=== PATIENT | male | born 1970 | race Caucasian/White ===

== ENCOUNTER 2019-09-20 06:22 | Day surgery (SDC) | payer BC ==
[~2019-09-20 06:22] MED LIST: CEFAZOLIN 1 Gram 1 GM/50 ML BAG IVPB ONE; CEFAZOLIN 2 Gram 2 GM/50 ML BAG IVPB ONE; CELECOXIB 100 MG CAPSULE PO ONE; FAMOTIDINE 20MG TABLET PO ONE; MECLIZINE 25 MG TABLET PO ONE; METOCLOPRAMIDE 10 MG TABLET PO ONE; VANCOMYCIN 1GM/200ML PREMIX 1 GM/200 ML PIGGYBACK IVPB ONE
[2019-09-20] MEDS ORDERED: EPHEDRINE SULFATE 50 MG/ML ML IV ONE (06:23)
[2019-09-20] MEDS ORDERED: DEXAMETHASONE 4 MG/ML 1ML VIAL IVP ONE (06:23)
[2019-09-20] MEDS ORDERED: PHENYLEPHRINE HCL 10 MG/ML VIAL IVP ONE (06:23)
[2019-09-20] MEDS ORDERED: ROPIVACAINE HCL (NAROPIN) /PF 5MG/ML 20ML VIAL IV ONE (06:23)
[2019-09-20] MEDS ORDERED: FENTANYL PF 100MCG/2ML VIAL IV ONE (06:23)
[2019-09-20] MEDS ORDERED: LIDOCAINE 2% MDV (20MG/ML) 20ML VIAL IV ONE (06:23)
[2019-09-20] MEDS ORDERED: PROPOFOL 10 MG/ML VIAL IV ONE (06:23)
[2019-09-20] MEDS ORDERED: *PACU ONLY* KETAMINE HCL 10 MG/ML (20ML) VIAL IV ONE (06:23)
[2019-09-20] MEDS ORDERED: MIDAZOLAM HCL 2MG/2ML VIAL IV ONE (06:23)
[2019-09-20] MEDS ORDERED: RINGERS SOLUTION,LACTATED 1,000 ML IV ONE ×3 (07:00→10:05)
[2019-09-20 07:46] LABS: ABO GROUP O; ANTIBODY SCREEN NEGATIVE (NEGATIVE); RH TYPE POSITIVE
[2019-09-20] MEDS ORDERED: BUPIVACAINE 0.5% W/EPI MPF 30 ML VIAL SQ ONE (09:41)
[2019-09-20] MEDS ORDERED: TRANEXAMIC ACID 1,000 MG/10 ML ML IU ONE (09:41)
[2019-09-20] MEDS ORDERED: TRANEXAMIC ACID 1,000 MG/10 ML ML IV ONE (09:41)
[2019-09-20] MEDS ORDERED: ONDANSETRON HCL IV 4 MG/2 ML VIAL IVP PRN (10:45)
[2019-09-20] MEDS ORDERED: NALOXONE 0.4 MG/1 ML VIAL IVP PRN (10:45)
[2019-09-20] MEDS ORDERED: MAGNESIUM HYDROXIDE 30 ML UDC PO PRN (10:45)
[2019-09-20] MEDS ORDERED: HYDROMORPHONE HCL 2 MG/ML VIAL IM PRN (10:45)
[2019-09-20] MEDS ORDERED: ZOLPIDEM TARTRATE 5 MG TABLET PO PRN (10:45)
[2019-09-20] MEDS ORDERED: AL HYDROX/MAG HYDROX 30ML UD PO PRN (10:45)
[2019-09-20] MEDS ORDERED: KETOROLAC 30 MG/ML VIAL IVP PRN (10:45)
[2019-09-20] MEDS ORDERED: ACETAMINOPHEN 325 MG TAB PO PRN (10:45)
[2019-09-20] MEDS ORDERED: TRAMADOL HCL 50 MG TABLET PO PRN (10:45)
[2019-09-20] MEDS ORDERED: BISACODYL 10 MG SUPP RC PRN (10:45)
[2019-09-20] MEDS ORDERED: DIPHENHYDRAMINE HCL 25 MG CAPSULE PO PRN (10:45)
[2019-09-20] MEDS ORDERED: ACETAMINOPHEN W/ CODEINE 300MG/60MG TABLET PO PRN ×2 (10:45)
[2019-09-20] MEDS: HYDROCODONE/APAP 10/325 TABLET PO PRN ×3 (12:53→21:57)
--- NOTE | 2019-09-20 13:01 | Operative Note ---
DATE OF SURGERY: 09/20/2019 PREOPERATIVE DIAGNOSIS: End-stage arthrosis of the left knee. POSTOPERATIVE DIAGNOSIS: End-stage arthrosis of the left knee. OPERATION: Cemented left total knee arthroplasty using Ya and Nephew components with a size 7 Legion Oxinium femoral component, a size 6 stemmed tibia baseplate, a 9 mm lipped highly crosslinked tibial insert, and a 35 mm all-plastic patella. STAFF SURGEON: Fidencio Marie MD ANESTHESIA: Spinal. PREPARATION: Chloraprep. INDIVIDUAL CONSIDERATIONS: None. PROCEDURE: The patient was taken to the operating room, placed supine on the operating room table. He had a successful induction of a spinal anesthetic. The left lower extremity was prepped and draped in the usual fashion. The limb was elevated and tourniquet was inflated to 250 mmHg. Sharp dissection carried down through skin and subcutaneous tissue. Small veins were coagulated with a Bovie. A medial arthrotomy was performed. The patella was everted and the knee was flexed. The patient had exposed bone with bone loss in the medial and some in the patellofemoral compartments. Fat pad was resected, ACL was sacrificed, and provisional anterior meniscectomies were performed. The capsule was released from the medial proximal tibia. The initial femoral private pilot hole was then made freehand. The intramedullary femoral cutting jig was placed. It was set in 7.0 degrees of valgus and adjusted for rotation and secured with pins for a 10 mm resection. The initial transverse cut was then made. The skin guide was placed in 3 degrees of external rotation and the private pilot holes were drilled. The anterior and posterior cuts followed by chamfer cuts were made for a size 7, which fit appropriately. Large medial osteophytes were removed, and a size 7 trial was placed and found to fit well. The tibia was brought forward, and the remainder of the meniscal remnants removed with a Bovie. The extraarticular tibial cutting jig was placed. It was cut in neutral with a 3-degree AP slope. It was set for a 9 mm resection keyed off the high lateral side and secured with pins. When cutting the tibia, care was taken to preserve the PCL insertion on the tibia. After removing large medial osteophytes, I could fit a size 6. It was adjusted for rotation and secured with pins. With a 9 mm trial and femoral trial, there was excellent motion and stability. Ligamentous balance and rotation alignment were thought to be normal. Femoral private pilot holes were impacted and tri-flange tibial stamp was impacted, and these trial components were removed. The patient had a very thick patella and roughly 9 mm of bone was removed and the 3 private pilot holes were drilled for the 35 mm patella. The tourniquet was let down briefly to get bleeders posteriorly and then placed back up again. The knee was then thoroughly irrigated out with pulsatile Betadine and saline to remove any visual or palpable debris. Bony surfaces were dried with a CarboJet prior to cementing. A size 6 stemmed tibia baseplate was cemented into place followed by impaction of the 9 mm lipped highly crosslinked tibial insert followed by cementing in the size 7 Oxinium femur followed by cementing in the 35 mm patella. The implant surfaces were compressed, excess cement was removed. After the cement had set, there was excellent motion and stability. Ligamentous balance, rotation alignment, and patellofemoral tracking were normal. No lateral release was required. Tourniquet was let down. Hemostasis was obtained with a Bovie. Final irrigation with pulsatile Betadine and saline. The skin, periosteum, and subcu were infiltrated with 30 mL of 0.5% Marcaine with epinephrine. The capsule was then closed with a running #2 quill, subcu was closed in layers with running 0 quill, skin was closed with agustín. Then 1 g of tranexamic acid was mixed with 30 mL of saline and injected into the knee through a sterile 18-gauge needle, and a sterile bulky compressive MARCOS-type dressing was applied. The patient tolerated the procedure well. Needle and sponge counts were correct. Estimated blood loss was minimal, and he was taken back to recovery in good condition. There were no complications. [facility]ITALBaltazar
--- NOTE | 2019-09-20 13:47 | Rehab Evaluation ---
Patient Information - Patient Information Diagnosis: L knee DJD Ordered Treatment: PT Evaluate and Treat Status: Initial Evaluation Surgery: Yes (L TKA) Date of Surgery: 09/20/19 Past Medical/Surgical Hx: PAST MEDICAL/SURGICAL HISTORY Surgery to Affected Area? No Recent Surgery? Past Surgical History ACL RECONSTRUCTION RIGHT KNEE BILAT KNEE SCOPES PMH - Respiratory Hx Respiratory Disorders No PMH - Cardiovascular Hx Cardiovascular Disorders Yes Hx Hypertension Yes: CONTROLLED WITH MEDS Exercise Tolerance Good PMH - Neuro Hx Neurological Disorders No PMH - GI Hx Gastrointestinal Disorders Yes Hx Gastroesophageal Reflux Yes: ON OCCASSION PMH - Hx Genitourinary Disorders No PMH - Endocrine Hx Endocrine Disorders No PMH - Musculoskeletal Hx Musculoskeletal Disorders Yes Hx Arthritis Yes: KNEES PMH - Psych Hx Psychiatric Problems No PMH - Hematology/Oncology Hx Hematology/Oncology Yes Disorders Hx Cancer Yes: SKIN CA shoulder & back of head 02/03/18 Premorbid Status: Detail (The patient was independent with all mobility prior to history.) Social History: Detail (The patient lives with spouse in a one story house with a step, landing and a step with no railings at the front enterance. The bathroom is equipped with: a walk in shower with a small "lip" to step over, hand held shower head, built in shower bench and an elevated toilet. There are no grab bars in the bathroom. The patient has a front wheeled walker and single point cane.) Precautions: Citra, Fall, Other (WBAT on the L LE.) - Time With Patient Total Time Spent With Patient (Min): 30 Treatment Procedures: Detail (Initial Evaluation, low complexity, gait training) Subjective Information - Subjective Information Per Patient (The patient complained of L knee aching but not pain.) Objective Data - Mental Status Patient Orientation: Oriented x3 - Visual Perception Appears within normal limits for therapeutic activities - ROM Not within normal limits (The patient's L knee AROM is limited s/p surgery. All other LE AROM is WNL.) - Strength/Tone Not within normal limits (The patient's LE strength was not tested s/p however is WFL.) - Bed Mobility Independent (The patient was independent with sit to supine and required minimal PA to move L LE with supine to sit. The patient was independent with scooting up in bed.) - Transfers Independent (The patient was independent with sit to and from stand transfer.) - Balance Balance Sitting: Good Balance Standing: Good - Sensation Intact - Gait Detail (The patient ambulated with front wheeled walker WBAT on the LLE a distance of 60 feet x 1 with assist of one to handle equipment only.) Therapy Assessment - Therapy Assessment Detail (The patient was independent with transfers and ambulation and required minimal assist with moving L LE with supine to sit. The patient will be seen for 1-2 PT visits for completion of PT inpt. goals.) Problem List - Problem List Physical Therapy Problem List: Detail ( Decreased L knee AROM and L LE strength) Goals - Goals Physical Therapy Goals: 1) The patient will be independent with bed mobility. 2) The patient will be independent with TKA HEP. 3) The patient will ambulate on stairs using proper technique with supervision for safety only. 4) The patient will ambulate independently WBAT on the L LE WBAT on the L LE. Prognosis - Prognosis Good Plan - Plan Physical Therapy Plan: PT 1-2 sessions for gait training on levels and stairs, bed mobility and instruction in TKA HEP.
[2019-09-20] MEDS: POTASSIUM CHLORIDE/D5-0.9%NACL 20 MEQ/1,000 ML BAG IV SCH ×2 (14:07→22:02)
[2019-09-20] MEDS: CEFAZOLIN 2 Gram 2 GM/50 ML BAG IVPB SCH (16:20)
[2019-09-20] MEDS: DOCUSATE SODIUM 100 MG CAPSULE PO SCH (21:55)
[2019-09-21] MEDS: CEFAZOLIN 2 Gram 2 GM/50 ML BAG IVPB SCH ×2 (00:01→09:48)
[2019-09-21] MEDS: HYDROCODONE/APAP 10/325 TABLET PO PRN ×4 (01:45→15:19)
[2019-09-21] MEDS: POTASSIUM CHLORIDE/D5-0.9%NACL 20 MEQ/1,000 ML BAG IV SCH ×2 (05:36→12:06)
[2019-09-21 06:49] LABS: HEMATOCRIT 42.2 % (42.0-52.0); HEMOGLOBIN 13.5 gm/dl (14.0-18.0)
[2019-09-21 07:03] LABS: BLOOD UREA NITROGEN 9 mg/dL (6-20); CREATININE 0.8 mg/dL (0.7-1.2); EST GLOMERULAR FILTRATION RATE > 60 mL/min; GLUCOSE,RANDOM 113 mg/dL (74-109)
--- NOTE | 2019-09-21 08:40 | Rehab Evaluation ---
Patient Information - Patient Information Diagnosis: L knee DJD Ordered Treatment: OT Evaluate and Treat Status: Initial Evaluation Surgery: Yes (L TKA) Date of Surgery: 09/20/19 Past Medical/Surgical Hx: PAST MEDICAL/SURGICAL HISTORY Surgery to Affected Area? No Recent Surgery? Past Surgical History ACL RECONSTRUCTION RIGHT KNEE BILAT KNEE SCOPES PMH - Respiratory Hx Respiratory Disorders No PMH - Cardiovascular Hx Cardiovascular Disorders Yes Hx Hypertension Yes: CONTROLLED WITH MEDS Exercise Tolerance Good PMH - Neuro Hx Neurological Disorders No PMH - GI Hx Gastrointestinal Disorders Yes Hx Gastroesophageal Reflux Yes: ON OCCASSION PMH - Hx Genitourinary Disorders No PMH - Endocrine Hx Endocrine Disorders No PMH - Musculoskeletal Hx Musculoskeletal Disorders Yes Hx Arthritis Yes: KNEES PMH - Psych Hx Psychiatric Problems No PMH - Hematology/Oncology Hx Hematology/Oncology Yes Disorders Hx Cancer Yes: SKIN CA shoulder & back of head 02/03/18 Premorbid Status: Detail (The patient was independent with all mobility prior to history. He is typically responsible for meal prep and yard work and his spouse is responsible for home mgmt and laundry tasks.) Social History: Detail (The patient lives with spouse in a one story house with a step, landing and a step with no railings at the front entrance. The bathroom is equipped with: a walk in shower with a small "lip" to step over, hand held shower head, built in shower bench and an elevated toilet. There are no grab bars in the bathroom. The patient has a front wheeled walker and single point cane.) Precautions: Otto, Fall, Other (WBAT on the L LE.) - Time With Patient Total Time Spent With Patient (Min): 40 Treatment Procedures: Detail (OT eval low complexity) Subjective Information - Subjective Information Per Patient, Other (Spouse) Objective Data - Pain Pain Present: Yes (12/08) - Mental Status Patient Orientation: Oriented x3 - Visual Perception Appears within normal limits for therapeutic activities - ROM Within normal limits (Wade UE AROM WNL) - Strength/Tone Within normal limits (Wade UE strength WNL) - Coordination Appears within normal limits for therapeutic activities - Bed Mobility Independent (Ind with supine to sit and sit to supine) - Transfers Independent (Ind with sit to stand from EOB) - Balance Balance Sitting: Good Balance Standing: Good - Sensation Intact - Gait Detail (Pt ambulating in room with 2 wheeled walker and supervision) - ADL's/IADL's Detail (Pt was partially dressed upon arrival to room. Reviewed modified LE dressing techniques and pt was able to demonstrate donning sebastian sock (with assist) and donning socks and tennis shoes with min assist from spouse for heel of shoe. Pt able to verbalize modified LE dressing technique and spouse will be able to assist if needed. Reviewed kitchen and shower safety and modifications, pt verbalized understanding.) Therapy Assessment - Therapy Assessment Detail (Pt verbalized understanding of modified LE dressing techniques.) Problem List - Problem List Physical Therapy Problem List: Detail ( Decreased L knee AROM and L LE strength) Occupational Therapy Problem List: Detail (No current OT problems identified.) Goals - Goals Physical Therapy Goals: 1) The patient will be independent with bed mobility. 2) The patient will be independent with TKA HEP. 3) The patient will ambulate on stairs using proper technique with supervision for safety only. 4) The patient will ambulate independently WBAT on the L LE WBAT on the L LE. Occupational Therapy Goals: No current IP OT goals identified. Prognosis - Prognosis Good Plan - Plan Physical Therapy Plan: PT 1-2 sessions for gait training on levels and stairs, bed mobility and instruction in TKA HEP. Occupational Therapy Plan: Pt is discharged from IP OT at this time. Thank you for this referral.
[2019-09-21] MEDS: DOCUSATE SODIUM 100 MG CAPSULE PO SCH (09:50)
[2019-09-21] MEDS ORDERED: FERROUS SULFATE 325 MG TAB PO SCH (10:00)
[2019-09-21] MEDS ORDERED: MULTIVITAMINS/MINERALS TABLET PO SCH (10:00)
[2019-09-21] MEDS ORDERED: LISINOPRIL 20 MG TABLET PO SCH (10:00)
[2019-09-21] MEDS ORDERED: RIVAROXABAN 10 MG TABLET PO SCH (10:00)
--- NOTE | 2019-09-21 10:19 | Physical Therapy Tx Note ---
Physical Therapy Tx Note - Treatment Note Tolerated: Good Total Time Spent With Patient: 40 Physical Therapy Tx Note: Detail (Patient was reclined in bed upon [employer] arrival. Patient transferred supine to sit independently. Patient donned shoes independently. Patient transferred sit to and from stand SBA x1. Patient ambulated 118 feet with wheeled walker SBA x1. Patient descended and ascended 3 steps with using stairwell railing and walker CGA x1. Patient transferred sit to supine independently. Patient performed the following exercises x5-10 reps each: ankle pumps, glut squeezes, quad sets, heel slides, SLR, and hamstring curls. Patient tolerated treatment well. Patient displays good understanding of ambulation, stair climbing, and HEP. Patient was left supine in bed with call light within reach. Patient discharged from inpatient PT at this time as a ll goals are met.) Physical Therapy Problem List: Detail ( Decreased L knee AROM and L LE strength) Physical Therapy Goals: 1) The patient will be independent with bed mobility. Met. 2) The patient will be independent with TKA HEP. Met. 3) The patient will ambulate on stairs using proper technique with supervision for safety only. Met. 4) The patient will ambulate independently WBAT on the L LE WBAT on the L LE. Met. Prognosis: Good Physical Therapy Plan: Patient discharged from inpatient PT as all goals are met.
== END 2019-09-21 16:00 | disposition home health service (06) ==
LOC: SUR 06:22 → MEDSURG 11:34 → SUR 09-21 16:00
PROVIDERS: ATTEND Orthopaedic Surgery
DX: M17.12 Unilateral primary osteoarthritis, left knee (principal); I10 Essential (primary) hypertension; G47.33 Obstructive sleep apnea (adult) (pediatric); R05 Cough; E66.9 Obesity, unspecified
CPT/HCPCS: 76942; 80048; 85014; 85018; 86850; 86900; 86901; C1776; J1885; J2370; J3370; J3480; J7120